=== PATIENT | male | born 1945 | race Caucasian/White ===

== ENCOUNTER 2016-08-18 16:52 | Emergency (ER) | payer OTHER ==
[~2016-08-18] VITALS: Ht 172.7 cm; Wt 97.6 kg
[2016-08-18 16:55] VITALS: TEMP 36.7; Ht 172.7 cm; Wt 97.6 kg
[2016-08-18] MEDS ORDERED: ASPI81TA28 PO (17:06)
[2016-08-18] MEDS ORDERED: METR0.7527 TOP (17:06)
[2016-08-18] MEDS ORDERED: GLUC15002 PO (17:06)
[2016-08-18] MEDS ORDERED: VNTHFA/IN INH (17:06)
[2016-08-18] MEDS ORDERED: LOSA50TA6 PO (17:06)
[2016-08-18] MEDS ORDERED: FLUT0.15 NAE (17:06)
[2016-08-18] MEDS ORDERED: EPP3/2 IM (17:06)
--- NOTE | 2016-08-18 17:24 | EMERGENCY ROOM VISIT NOTE ---
History Report prepared by Clifford: Reinaldo Lindsey Under the Supervision of: Dr. Sanford Acosta M.D. First contact with patient: 17:01 Chief Complaint: ALLERGIC REACTION Stated Complaint: BEE STING, ALLERIG, USED EPI PEN History of Present Illness The patient is a 70 year old male who presents to the Emergency Room with concerns about a bee sting occurring about an hour ago. The patient got stung on both arms. 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 He had some mild itchiness on the site of the stings. The patient reports mild swelling on the sting site on both arms. He took an EpiPen. He denies taking any Benadryl. The patient did not feel as though he needed to use it. He denies any throat swelling, sore throat, shortness of breath, or any other complaints. He currently reports feeling at baseline. He currently denies any pain. His tetanus shot is up-to-date. Source of History: patient Onset: about an hour ago Position: arm (bilateral) Symptom Intensity: No pain Quality: other (bee sting) Modifying Factors (Relieving): other (EpiPen ) Associated Symptoms: No sorethroat, No SOB Review of Systems See HPI for pertinent positives & negatives. A total of 10 systems reviewed and were otherwise negative. Past Medical & Surgical Medical Problems: (1) Allergy to bee sting (2) Chest pain (3) Reflux esophagitis Family History Patient reports no known family medical history. Social History Smoking Status: Former Smoker Marital Status: Occupation Status: employed Current/Historical Medications Scheduled Aspirin (Aspirin Ec), 81 MG PO DAILY Epinephrine (Epipen), 0.3 MG IM UD Txeaksbgdes-Yrtznzgllpo-Gsl C- (Glucosamine 1500 Complex), 1 CAP PO DAILY Losartan Potassium (Cozaar), 50 MG PO DAILY Prednisone (Prednisone), 2 TAB PO DAILY Scheduled PRN Albuterol Hfa (Ventolin Hfa), 2 PUFFS INH Q6H PRN for SOB/Wheezing Fluticasone Propionate (Nasal) (Flonase Allergy Relief), 2 SPRAYS TONY DAILY PRN for ALLERGIC REACTION Metronidazole (Topical) (Metrogel), 1 APPLN TOP BID PRN for breakouts Allergies Coded Allergies: BEE STING (Verified Allergy, Severe, ANAPHYLAXIS, 7/8/17) Physical Exam Vital Signs Date Time Temp Pulse Resp B/P (MAP) Pulse Ox O2 Delivery O2 Flow Rate FiO2 08/18/16 19:22 65 19 151/87 98 08/18/16 18:33 70 19 123/77 94 Room Air 08/18/16 17:49 78 08/18/16 16:55 36.7 82 20 163/81 96 Room Air Physical Exam GENERAL: Patient is in no acute distress. HEENT: No acute trauma, normocephalic atraumatic, mucous membranes moist, no nasal congestion, no scleral icterus. No uvular edema, or posterior pharyngeal swelling. NECK: No stridor, no adenopathy, no meningismus, trachea is midline. LUNGS: Clear to auscultation bilaterally, no wheeze, no rhonchi, breath sounds equal. HEART: Without murmurs gallops or rubs, regular rate and rhythm. ABDOMEN: Soft, nontender, bowel sounds positive, no hernias, no peritonitis. EXTREMITIES: No cyanosis or edema, full range of motion of all the joints without pain or difficulty, no signs for acute trauma. NEUROLOGIC: Oriented x 3, no acute motor or sensory deficits, no focal weakness. SKIN: There is a small bee sting reaction to both forearms, no cellulitis. Medical Decision & Procedures Medications Administered Medications (Trade) Dose Ordered Sig/Renee Route Start Time Stop Time Status Last Admin Dose Admin Prednisone (PredniSONE TAB) 60 mg NOW STAT PO 08/18/16 17:08 08/18/16 17:10 DC 08/18/16 17:21 60 MG Diphenhydramine HCl (Benadryl Cap) 50 mg NOW ONCE PO 08/18/16 17:15 08/18/16 17:16 DC 08/18/16 17:21 50 MG Epinephrine (Epipen) 0.3 mg NOW STAT IM 08/18/16 19:04 08/18/16 19:05 DC 08/18/16 19:17 0.3 MG ED Course 1700: The patient was evaluated in room B06. A complete history and physical exam was performed. 1707: Prednisone 60 mg PO 1715: Benadryl Cap 50 mg PO 1900: Reevaluated the patient. He does not have any symptoms. Discussed results and discharge instructions: He verbalized understanding and agreement. The patient is ready for discharge. 1904: EpiPen 0.3 mg IM Medical Decision Medication Reconciliation: I attest that I have personally reviewed the patient' s current medication list. Blood pressure screening: Patient was found to have a slightly elevated blood pressure due to circumstances. I do not believe that the patient requires hypertension monitoring. Differential diagnosis includes but is not limited to bee sting, anaphylaxis, allergic reaction, cellulitis. The patient presents after two bee stings, he has a known severe allergy to yellow jackets. He was not sure what type of bee had done the stinging, he did use his EpiPen. He did not have any symptoms of throat tightness or wheezing, no diffuse itching. The only itching areas are the areas where he was stung. The patient received oral Benadryl and oral prednisone. He was watched here for over 2 hours. He feels well, no difficulty with breathing, no hives, no chest tightness. The patient is being discharged on a few days of prednisone and Benadryl. He was given an EpiPen to take with him to use if he had any feelings of anaphylaxis. The patient was encouraged to return if feeling worse. Impression Primary Impression: Bee sting Scribe Attestation The scribe's documentation has been prepared under my direction and personally reviewed by me in its entirety. I confirm that the note above accurately reflects all work, treatment, procedures, and medical decision making performed by me. Departure Information Dispostion Home / Self-Care Prescriptions Prednisone (Prednisone) 20 Mg Tab 2 TAB PO DAILY for 3 Days, #6 TAB Prov: Sanford Acosta M.D. 08/18/16 Referrals Evangelist Powers M.D. (PCP) Forms HOME CARE DOCUMENTATION FORM, IMPORTANT VISIT INFORMATION Patient Instructions My [facility] Additional Instructions benadryl 1-2 tab every 6 hours for 3 days prednisone daily for 3 more days keep epipen with you at all times and use as needed return if worsening
[2016-08-18] MEDS ORDERED: EPINEPHRINE ADULT AUTO-INJECT 0.3 MG SYR IM STA (19:04)
[2016-08-18] MEDS ORDERED: PRED20TA PO (19:07)
[2016-08-18 19:22] VITALS: BP 151/87; PULSE 65; O2SAT 98
== END 2016-08-18 19:20 | disposition home or self-care (01) ==
LOC: C.EDB 16:53
DX: T63.441A Toxic effect of venom of bees, accidental (unintentional), initial encounter (principal); Z87.891 Personal history of nicotine dependence; Z79.82 Long term (current) use of aspirin